=== PATIENT | female | born 1965 | race Caucasian/White ===

== ENCOUNTER → 2022-07-03 13:45 | Outpatient (BNVA) | payer BC, SELFPAY | PROVIDERS: PCP Nurse Practitioner Family; Visit Provider Nurse Practitioner Women's Health | DX: Z01.411 Encounter for gynecological examination (general) (routine) with abnormal findings (principal); Z12.4 Encounter for screening for malignant neoplasm of cervix; N92.0 Excessive and frequent menstruation with regular cycle | CPT/HCPCS: 80053; 82652; 83036; 84443; 85025; 87624 ==

== ENCOUNTER → 2022-07-22 10:38 | Outpatient (BNVA) | payer BC, SELFPAY | PROVIDERS: PCP Nurse Practitioner Family; Visit Provider Nurse Practitioner Women's Health | DX: N92.0 Excessive and frequent menstruation with regular cycle (principal); D25.9 Leiomyoma of uterus, unspecified | CPT/HCPCS: 76830 ==

== ENCOUNTER 2022-10-16 10:34 | Outpatient (CLI) | payer BC, SELFPAY ==
--- NOTE | 2022-10-16 10:49 | MM_ITS ---
WS: [id number] SCREENING DIGITAL BREAST TOMOSYNTHESIS MAMMOGRAM WITH CAD HISTORY: Screening. COMPARISON: None available. Bilateral CC and MLO with tomosynthesis and synthetic mammography submitted. Computer aided detection analyzed. Breast composition: The breasts are heterogeneously dense, which may obscure small masses. Well-circu mscribed nodule in the anterior LEFT breast measures 8 mm. Benign 5 mm lymph node in the RIGHT axilla ry tail. MM/[place] [id number] IMPRESSION: BI-RADS: 0-Incomplete: Need additional imaging evaluation FOLLOW UP: Need Additional Imaging Recommendation: Ultrasound LEFT breast, subareolar.
== END 2022-10-16 10:35 | disposition home or self-care (01) ==
LOC: RAD 10:35
PROVIDERS: PCP Nurse Practitioner Family; Visit Provider Nurse Practitioner Family
DX: Z12.31 Encounter for screening mammogram for malignant neoplasm of breast (principal); N85.2 Hypertrophy of uterus; N85.8 Other specified noninflammatory disorders of uterus
CPT/HCPCS: 76830; 77063; 77067

== ENCOUNTER 2022-11-23 14:47 | Outpatient (CLI) | payer BC, SELFPAY ==
--- NOTE | 2022-11-23 14:53 | US_ITS ---
WS: [id number] ULTRASOUND BREAST LEFT TECHNIQUE: Ultrasound left breast focused area of concern. CLINICAL INFORMATION: ADDITIONAL VIEWS, SUBAREOLAR COMPARISON: October 16, 2022 FINDINGS: Ultrasound LEFT breast in the area of mammographic abnormality LEFT areola. A few simple and complex cysts are visualized. Mild ductal ectasia. No solid or suspicious lesions. No lesions to target for b iopsy. Recommend 6 month follow-up ultrasound to confirm stability. US/US breast LT limited* [id number] IMPRESSION: BI-RADS 3 probably benign FOLLOW UP: Recommend 6 month follow-up LEFT breast ultrasound areola to confirm stability
== END 2022-11-23 14:48 | disposition home or self-care (01) ==
LOC: RAD 14:49
PROVIDERS: PCP Nurse Practitioner Family; Visit Provider Nurse Practitioner Family
DX: R92.8 Other abnormal and inconclusive findings on diagnostic imaging of breast (principal)
CPT/HCPCS: 76642

== ENCOUNTER 2023-02-17 09:40 | Observation (INO) | payer BC, SELFPAY ==
--- NOTE | 2023-02-15 15:05 | P.ANESASSM_ITS ---
Pre-Anesthetic Assessment Height/Weight: Height 1.63 m Weight 90.265 kg Operation Date: 02/17/23 07:00 Proposed Procedures p Total vaginal hysterectomy, bilateral salpingo-oophorectomy 75129,D25.9,N95.0(Not Applicable) - Cash Ojeda MD s Salpingo-Oophorectomy (Vaginal)(Not Applicable) - Cash Ojeda MD Familial anesthetic complications: none Was Beta Stephanie taken within 24 hours: N/A Was Clonidine taken within 24 hours: N/A Social No alcohol and No tobacco Exam alert, oriented x 3, clear to auscultation bilaterally and regular rate & rhythm Airway Submandibular: within normal limits Cervical ROM: within normal limits Mallampati: Class II Dentition: full Pulmonary Asthma CV/HEM Hypertension Anesthetic Plan ASA status: 2 Anesthesia: General Medications/Allergies Home Medications Medication Instructions Recorded Confirmed Last Taken Type levalbuterol tartrate 45 2 inh inhalation Q6H #15 grams 06/26/22 02/15/23 Unknown Rx mcg/actuation aerosol inhaler (Xopenex HFA) fluticasone propionate 110 2 inh inhalation BID PRN Allergic 07/30/22 02/15/23 Unknown History mcg/actuation HFA aerosol inhaler Reaction (Flovent HFA) lisinopril 20 mg tablet 20 mg PO DAILY 90 days #90 tabs 01/26/23 02/15/23 02/15/23 Rx Allergies Allergy/AdvReac Type Severity Reaction Status Date / Time Sulfa (Sulfonamide Allergy Intermediate Hives Verified 02/15/23 13:03 Antibiotics) [facility] Anesthesia Medical History Asthma Hypertension No pertinent past medical history neghx: dm,thyroid,dvt/pe PCP: Nancy Price Surgical History No pertinent past surgical history Family History Mother Cancer, Onset Age: 51 lung-- due to smoking Father Hypertension Parkinson disease Sister Cervical cancer dx at 18 years old-- has not had treatment; most likely pre-cancerous Denies family history of Colon cancer Ovarian cancer Diabetes Heart disease Hypercholesteremia Hyperlipidemia Breast cancer Uterine cancer Thyroid disease Stroke Social History Smoking and tobacco status: never smoked Female Reproductive History Para: 3 Data Anesthesia Cardiac Studies: No Data to Display
[2023-02-17] VITALS (16 sets, daily range): BP systolic 103–150; BP diastolic 66–81; PULSE 52–93; RESP 16–18; TEMP 36.1–36.9; O2SAT 93–100
[2023-02-17 06:22] LABS: OR HCG Qualitative Urine Negative (Negative)
--- NOTE | 2023-02-17 06:44 | W.PM.OPSUD ---
Surgery/Procedure H&P Update DATE OF PROCEDURE: February 17, 2023 DATE H&P PERFORMED: 02/15/23 H&P UPDATE INFORMATION: I have reviewed H&P completed within last 30 days, I have examined patient prior to procedure and No changes to prior documentation PREOP DIAGNOSIS: Abnormal uterine bleeding, uterine fibroid PLANNED PROCEDURE: Operation Date: 02/17/23 07:00 Proposed Procedures p Total vaginal hysterectomy, bilateral salpingo-oophorectomy 14528,D25.9,N95.0(Not Applicable) - Cash Ojeda MD s Salpingo-Oophorectomy (Vaginal)(Not Applicable) - Cash Ojeda MD
[2023-02-17 06:54] LABS: Basophils # 0.1 10^3/uL (0.0-0.1); Basophils % 0.6 %; Eosinophils # 0.4 10^3/uL (0.0-0.8); Eosinophils % 4.7 %; Hematocrit 46.9 % (37.0-47.0); Hemoglobin 14.4 g/dL (11.5-15.3); Lymphocytes # 1.5 10^3/uL (0.8-4.8); Lymphocytes % 17.9 %; Mean Corpuscular HGB Conc 30.7 g/dL (30.0-36.0); Mean Corpuscular Hemoglobin 24.5 pg (28.0-34.0); Mean Corpuscular Volume 79.8 fl (81-99); Monocytes # 0.6 10^3/uL (0.2-0.9); Neutrophils # 5.76 10^3/uL (1.8-7.7); Neutrophils % 69.6 %; Nucleated Red Blood Cells % 0 %; Platelet Count 253 10^3/cmm (130-400); Red Blood Count 5.88 10^6/uL (4.1-5.3); Red Cell Distribution Width 15.2 % (12.1-15.1); White Blood Count 8.3 10^3/uL (4.0-10.0)
[2023-02-17] MEDS: sodium chloride 0.9% 1,000 ML 30 ML IV (07:02)
[2023-02-17] MEDS: sodium chloride 0.9% 500 ML IV (07:02)
[2023-02-17] MEDS: scopolamine 1.5 Patch 1 PATCH TRANSDERMA (07:02)
[2023-02-17] MEDS: ceFOXitin 2,000 MG in sodium chloride 0.9% (plus) 50 ML 100 MG IV (07:04)
[2023-02-17 07:16] LABS: Alanine Aminotransferase 11 U/L (0-33); Albumin Level 3.8 g/dL (3.5-5.2); Alkaline Phosphatase 79 U/L (35-105); Aspartate Amino Transferase 13 U/L (0-32); Blood Urea Nitrogen 18 mg/dL (6-20); Calcium 8.9 mg/dL (8.5-10.5); Carbon Dioxide 23 mmol/L (22-29); Chloride 105 mmol/L (98-107); Globulin 3.1 g/dL (1.3-4.6); Glomerular Filtration Rate 46.5 mL/min (90-130); Glucose 88 mg/dL (65-115); Osmolality Calculated 287 mOsm/kg (285-295); Sodium 138 mmol/L (136-145); Total Bilirubin 0.6 mg/dL (0.15-1.2); Total Protein 6.9 g/dL (6.6-8.7)
[2023-02-17 07:20] LABS: Add Urine Microscopic? YES; Bilirubin Urine Neg (Negative); Blood Urine 2+ (Negative); Glucose Urine UA Norm (Normal); Ketones Urine Negative (Negative); Leukocyte Esterase Urine 2+ (Negative); Nitrate Urine Negative (Negative); Protein Urine Neg (Negative); Specific Gravity, Urine 1.015 (1.005-1.030); Urine Appearance Hazy (CLEAR); Urine Color Yellow (Yellow); Urobilinogen Urine Norm (Negative); pH Urine 6 (5-7)
[2023-02-17 07:21] LABS: Add Urine Culture? Yes; Bacteria Urine TRACE /hpf; WBC Urine 25-40 /hpf (0-5)
[2023-02-17] MEDS: lidocaine-epi 2% 20 mL INJ 10 ML INJECTION (07:27)
[2023-02-17] MEDS: sodium chloride 0.9% 1,000 ML 100 ML IV (07:36)
--- NOTE | 2023-02-17 09:33 | PM.OP ---
Operative Report Date of procedure: February 17, 2023 Pre-op diagnosis: Preop Diagnosis Abnormal uterine bleeding, uterine fibroid Post-op diagnosis: Same as above Post-op findings: Enlarged irregular shaped uterus Procedure done: Total vaginal hysterectomy. Bilateral salpingo-oophorectomy Implants: None Specimens removed/disposition: Uterus Left and right fallopian tube and ovaries Surgeon: Cash Ojeda MD Estimated blood loss (mL): 500 IV fluids (mL): 1,200 Urine output (mL): 200 Complications: Bleeding, enlarged uterus had to be morcellated in the vagina Procedure: After informed consent and risks, benefits, indications and alternatives reviewed with the patient was taken to the operating room. The patient was placed in dorsal lithotomy position prepped, and draped in the usual sterile fashion. The pre-procedure timeout verifying the correct patient, procedure, site and side, could not requirements was performed and acknowledge by the OR team. A Vazquez catheter was placed. A Bookwalter vaginal retractor was placed into the vagina in usual manner visualize the cervix. Cervix was grasped with a single tooth tenaculum and circumferentially infiltrated with 2% lidocaine with epinephrine. Then cervix was circumferentially incised with bovie and the bladder was dissected off the pubovesical cervical fascia anteriorly with a sponge stick and Metzenbaum scissors. The anterior peritoneal reflection was identified and the anterior cul-de-sac was entered sharply with Metzenbaum scissors. The same procedure was performed posteriorly and a posterior colpotomy was made through the posterior cul-de-sac space without difficulty and the posterior blade of the Bookwalter vaginal retractor was advanced posteriorly into the cul-de-sac. At this time, the left and right uterosacral ligaments were isolated and ligated with 0 Vicryl. The Enseal device was placed over the uterosacral ligaments on either side and was then used in a serial fashion up through the cardinal ligaments bilaterally cross-clamped, cut, and sealed with the Enseal device. Finally, the uterine arteries were cross-clamped, cut, sealed and ligated with the Enseal device. Hemostasis was assured. The broad ligaments were then serially clamped, sealed and cut with the Enseal device on both sides. At this time due to the uterus large sized and iregular shape the uterus was morcelated to be able to reach the cornua. Significant bleeding occured due to morcelation. Both cornua were clamped, sealed and cut with the Enseal device. Then the pedicles were then suture ligated with excellent hemostasis. The uterus was excised complete and submitted for pathologic evaluation. No other abnormalities were noted in the pelvic cavity. Then the right side Infundibular ligament was identified. The ureter was confirmed along the pelvic side wall and peristalsis was noted. The Enseal device was then used to clamp, sealed and transcepted at middistance, again being sure to be clear of the ureter and the fallopian tube and ovary were removed. The same process was then repeated on the left side. Good hemostasis was assure on both sides but surgiflow was placed. The peritoneum was then closed in a pursestring fashion with 0 Vicryl suture. The vaginal cuff angles were closed with [id number] #0 Vicryl suture on both sides and transfixed with the ipsilateral cardinal and uterosacral ligaments. The remainder of the vaginal cuff was closed with #0 Vicryl in a running locked fashion. At this time, instruments were removed from the vagina at hemostasis assured. Vazquez catheter was noted yielding clear green/liliana urine. The patient was taken out of dorsal lithotomy position and awakened from the general anesthesia. The patient tolerated the procedure well and was taken to the PACU recovery room in a stable condition. Sponge, lap, needle and instruments counts were correct x3.
--- NOTE | 2023-02-17 09:41 | P.ANESUD_ITS ---
Pre-Anesthetic Update Pre-Anesthetic Assessment: Date of Surgery/Procedure: 02/17/23 Preop Leanne gnosis: Abnormal uterine bleeding, uterine fibroid Proposed Procedure: Operation Date: 02/17/23 07:00 Proposed Procedures p Total vaginal hysterectomy, bilateral salpingo-oophorectomy 55690,D25.9,N95.0(Not Applicable) - Cash Ojeda MD s Salpingo-Oophorectomy (Vaginal)(Not Applicable) - Cash Ojeda MD Any changes to Pre-Anesthetic Assessment?: No Last Intake: Intake Last Liquid Date 02/16/23 Last Liquid Time 21:00 Last Solid Date 02/16/23 Last Solid Time 19:00 Labs Last 48hrs: Short CBC 02/17/23 Range/Units 06:42 WBC 8.3 (4.0-10.0) 10^3/ uL Hgb 14.4 (11.5-15.3) g/dL Hct 46.9 (37.0-47.0) % MCV 79.8 L (81-99) fl Plt Count 253 (130-400) 10^3/c mm Neut % (Auto) 69.6 % Neut # (Auto) 5.76 (1.8-7.7) 10^3/u L BMP 02/17/23 06:42 Sodium 138 Potassium 4.0 Chloride 105 Carbon Dioxide 23 BUN 18 Creatinine 1.2 H Glucose 88 Calcium 8.9 Liver Function 02/17/23 Range/Units 06:42 Total Bilirubin 0.6 (0.15-1.2) mg/dL AST 13 (0-32) U/L ALT 11 (0-33) U/L Alkaline Phosphata se 79 (35-105) U/L Albumin 3.8 (3.5-5.2) g/dL Urine 02/17/23 Range/Units 06:53 Urine Color Yellow (Yellow) Urine Appearance Hazy A (CLEAR) Urine pH 6 (5-7) Ur Specific Gravit y 1.015 (1.005-1.030) Urine Protein Neg (Negative) Urine Glucose (UA) Norm (Normal) Urine Ketones Negative (Negative) Urine Nitrate Negative (Negative) Urine Bilirubin Neg (Negative) Ur Leukocyte Annabelle ase 2+ H (Negative) Urine RBC 10-15 H (0-2) /hpf Urine WBC 25-40 H (0-5) /hpf Blood Bank 02/17/23 06:42 Blood Type O Positive Rho(D) Type Positive Antibody Screen Negative Vitals: Temperature 97 F L 02/17/23 09:32 Temperature Source Temporal Artery S can 02/17/23 06:30 Pulse Rate 54 L 02/17/23 09:37 Respiratory Rate 16 02/17/23 09:37 Blood Pressure 143/71 02/17/23 09:37 Blood Pressure Elissa n 95 02/17/23 09:37 Pulse Oximetry 100 02/17/23 09:37 Oxygen Delivery Me thod Room Air 02/17/23 09:37 Exam: Pre-Anes Outpt Exam: alert, oriented x 3, clear to auscultation bilaterally and regular rate & rhythm Cardiac Studies: No Data to Display
[2023-02-17] MEDS: ketorolac 30 mg/mL INJ IVP ×3 (10:38→22:56)
--- NOTE | 2023-02-17 14:11 | ANE.PACU2 ---
Inpatient post-anesthesia follow up: Airway intact: Yes Vital signs: Temperature 98.0 F Pulse Rate 59 Respiratory Rate 17 Blood Pressure 112/74 Pulse Oximetry 97 Oxygen Delivery Me thod Room Air Oxygen Flow Rate Fraction of Inspir ed Oxygen Hydration adequate: Yes Nausea and vomiting: No Pain level: 3 Mental status: Baseline
[2023-02-17] MEDS: docusate sodium 100 mg Capsule PO (18:25)
[2023-02-17] MEDS: simethicone 80 mg Chew PO (22:56)
[2023-02-17] MEDS: dextrose 5%-lactated ringers 1,000 ML 125 ML IV (23:00)
[2023-02-18 04:00] VITALS: BP 102/64; PULSE 77; RESP 18; TEMP 37.3; O2SAT 97
[2023-02-18] MEDS: ketorolac 30 mg/mL INJ IVP (05:19)
[2023-02-18] MEDS: simethicone 80 mg Chew PO (05:20)
[2023-02-18 05:33] LABS: Hematocrit 32.7 % (37.0-47.0); Hemoglobin 9.9 g/dL (11.5-15.3); Mean Corpuscular HGB Conc 30.3 g/dL (30.0-36.0); Mean Corpuscular Hemoglobin 24.4 pg (28.0-34.0); Mean Corpuscular Volume 80.7 fl (81-99); Mean Platelet Volume 9.1 fL (7.4-10.4); Platelet Count 186 10^3/cmm (130-400); Red Blood Count 4.05 10^6/uL (4.1-5.3); Red Cell Distribution Width 15.2 % (12.1-15.1); White Blood Count 10.8 10^3/uL (4.0-10.0)
--- NOTE | 2023-02-18 06:48 | PC.NURSE ---
This nurse handed off pt to Anahy Harrison on 02-17-23 @ [id number].
--- NOTE | 2023-02-18 09:10 | P.DS_ITS ---
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 Lopez is a 56 year old with a history of abnormal uterine bleeding due to enlarged uterus with fibroids. Hospital Course Hospital Course Ms. Lopez is a 56 year old with a large fibroid uterus admitted for planned total vaginal hysterectomy. Total vaginal hysterectomy with bilateral salpingectomy was performed complicated by significant bleeding due to in vagina morcellation of the uterus due to size. Postop overnight observation uneventful. Patient is afebrile and hemodynamically stable postoperative day 1. Tolerating diet well. Ambulating without difficulty. She was counseled r egarding pelvic rest for 6 weeks (no sex, no tampons, no vaginal douches). Return to the emergency room if any fever, increased bleeding or pain. Physical Exam Narrative: GA: Alert and oriented ?3. HEENT: WNL. Heart: Regular rate and rhythm. Lungs: Clear to auscultation bilaterally. Abdomen: Bowel sounds present, nontender. [employer] ARCHITECT: Spotting bleeding. Extremities: No edema, no cyanosis, no calves pain. Urinary Catheter Management: Vazquez: Cath Placed During This Visit: yes, but has since been removed by the nurse Reason for Continuing Indwelling Catheter: Decision to DC Catheter Urinary Catheter Date of Insertion: 02/17/23 Urinary Catheter Time of Insertion: 07:27 Date Urinary Catheter Removed: 02/18/23 Time Urinary Catheter Discontinued: 05:31 History History History 2 3 Term 3 0 Miscarriages/Ectopic 0 Living Children 3 Discharge Data Studies Completed and Pending Pending at discharge Category Date Time Status Urine Culture Stat Lab 02/17/23 06:53 Received Pathology: Surgical [PTH] Routine Pth 02/17/23 09:21 Received Laboratory Results WBC 10.8 10^3/uL (4.0-10.0) H 02/18/23 05:25 RBC 4.05 10^6/uL (4.1-5.3) L 02/18/23 05:25 Hgb 9.9 g/dL (11.5-15.3) L D 02/18/23 05:25 Hct 32.7 % (37.0-47.0) L D 02/18/23 05:25 MCV 80.7 fl (81-99) L 02/18/23 05:25 MCH 24.4 pg (28.0-34.0) L 02/18/23 05:25 MCHC 30.3 g/dL (30.0-36.0) 02/18/23 05:25 RDW 15.2 % (12.1-15.1) H 02/18/23 05:25 Plt Count 186 10^3/cmm (130-400) 02/18/23 05:25 MPV 9.1 fL (7.4-10.4) 02/18/23 05:25 Neut % (Auto) 69.6 % 02/17/23 06:42 Lymph % (Auto) 17.9 % 02/17/23 06:42 Crane % (Auto) 7.0 % 02/17/23 06:42 Eos % (Auto) 4.7 % 02/17/23 06:42 Baso % (Auto) 0.6 % 02/17/23 06:42 Neut # (Auto) 5.76 10^3/uL (1.8-7.7) 02/17/23 06:42 Lymph # (Auto) 1.5 10^3/uL (0.8-4.8) 02/17/23 06:42 Crane # (Auto) 0.6 10^3/uL (0.2-0.9) 02/17/23 06:42 Eos # (Auto) 0.4 10^3/uL (0.0-0.8) 02/17/23 06:42 Baso # (Auto) 0.1 10^3/uL (0.0-0.1) 02/17/23 06:42 Nucleated RBC % (auto) 0 % 02/17/23 06:42 Nucleated RBCs # 0.0 /100WBC 02/17/23 06:42 Sodium 138 mmol/L (136-145) 02/17/23 06:42 Potassium 4.0 mmol/L (3.5-5.1) 02/17/23 06:42 Chloride 105 mmol/L (98-107) 02/17/23 06:42 Carbon Dioxide 23 mmol/L (22-29) 02/17/23 06:42 Anion Gap 14.0 (5-19) 02/17/23 06:42 BUN 18 mg/dL (6-20) 02/17/23 06:42 Creatinine 1.2 mg/dL (0.5-0.9) H 02/17/23 06:42 GFR Calculation 46.5 mL/min (90-130) L 02/17/23 06:42 Glucose 88 mg/dL (65-115) 02/17/23 06:42 Calculated Osmolality 287 mOsm/kg (285-295) 02/17/23 06:42 Calcium 8.9 mg/dL (8.5-10.5) 02/17/23 06:42 Total Bilirubin 0.6 mg/dL (0.15-1.2) 02/17/23 06:42 AST 13 U/L (0-32) 02/17/23 06:42 ALT 11 U/L (0-33) 02/17/23 06:42 Alkaline Phosphatase 79 U/L (35-105) 02/17/23 06:42 Total Protein 6.9 g/dL (6.6-8.7) 02/17/23 06:42 Albumin 3.8 g/dL (3.5-5.2) 02/17/23 06:42 Globulin 3.1 g/dL (1.3-4.6) 02/17/23 06:42 Urine Color Yellow (Yellow) 02/17/23 06:53 Urine Appearance Hazy (CLEAR) A 02/17/23 06:53 Urine pH 6 (5-7) 02/17/23 06:53 Ur Specific Shiro 1.015 (1.005-1.030) 02/17/23 06:53 Urine Protein Neg (Negative) 02/17/23 06:53 Urine Glucose (UA) Norm (Normal) 02/17/23 06:53 Urine Ketones Negative (Negative) 02/17/23 06:53 Urine Blood 2+ (Negative) H 02/17/23 06:53 Urine Nitrate Negative (Negative) 02/17/23 06:53 Urine Bilirubin Neg (Negative) 02/17/23 06:53 Urine Urobilinogen Norm mg/dL (Negative) 02/17/23 06:53 Ur Leukocyte Esterase 2+ (Negative) H 02/17/23 06:53 Urine RBC 10-15 /hpf (0-2) H 02/17/23 06:53 Urine WBC 25-40 /hpf (0-5) H 02/17/23 06:53 Ur Squamous Epith Cells 5-10 /hpf (0-5) H 02/17/23 06:53 Amorphous Sediment Not Reportable 02/17/23 06:53 Urine Bacteria Trace /hpf (NONE) 02/17/23 06:53 Urine HCG, Qual Negative (Negative) 02/17/23 06:21 Blood Type O Positive 02/17/23 06:42 Rho(D) Type Positive 02/17/23 06:42 Antibody Screen Negative 02/17/23 06:42 Vitals Last Vital Signs Temp 99.1 F 02/18/23 04:00 Pulse 77 02/18/23 04:00 Resp 18 02/18/23 04:00 BP 102/64 02/18/23 04:00 Pulse Ox 97 02/18/23 04:00 O2 Del Method Room Air 02/18/23 04:00 Discharge Plan Discharge Patient Disposition: Home Condition: Stable Prescriptions: New hydrocodone-acetaminophen 5-325 mg tablet 1 tab PO Q4H PRN (Reason: pain) Qty: 15 0RF docusate sodium [Colace] 100 mg capsule 100 mg PO BID Qty: 60 0RF acetaminophen 325 mg capsule 325 mg PO Q4H PRN (Reason: fever or pain) Qty: 60 0RF ferrous sulfate [Iron (ferrous sulfate)] 325 mg (65 mg iron) tablet 325 mg PO BID Qty: 60 0RF ibuprofen 800 mg tablet 800 mg PO TID PRN (Reason: pain) Qty: 60 0RF Continued levalbuterol tartrate [Xopenex HFA] 45 mcg/actuation HFA aerosol inhaler 2 inh inhalation Q6H Qty: 15 3RF lisinopril 20 mg tablet 20 mg PO DAILY 90 Days Qty: 90 2RF fluticasone propionate [Flovent HFA] 110 mcg/actuation HFA aerosol inhaler 2 inh inhalation BID PRN (Reason: Allergic Reaction) Discharge Orders: Discharge Order (Routine); Ordered 02/18/23 Ordered By: Cash Ojeda Referrals: Cash Ojeda MD [Physician] - 03/04/23 9:45 am ( Your [address] follow up with Dr Ojeda is on March 04 at 9:45am Your 6 week follow up with Dr Ojeda is on April 02 at 9:15am ) Discharge Diet: Usual diet Discharge Activity: Limit activity as instructed Patient Instructions: Salpingo-Oophorectomy (GEN), Vaginal Hysterectomy (GEN), OB Discharge Report, OB Anesthesia Instructions, Opioid Safety Activity Restrictions/Additional Instructions: 1. Please call [facility] on next working day to make your post-operative appointment in 2 weeks. 2. Please stay home until you come back to the clinic on first post- hospatilization check up. 3. Please follow instructions on your medications CAREFULLY. 4. If you have abdominal incision, do not cover it unless dressing is necessary because of drainage. OK to shower, but avoid bath. Leave steri-strips until they fall off. If they are still on one week after surgery, you may remove them . 5. If you had vaginal surgery or vaginal repair, Dr. Ojeda may instruct you to take SITZ bath. 6. Yellow, blood tinged odorous vaginal discharge is usually normal after hysterectomy or vaginal surgeries. 7. No SEXUAL INTERCOURSE, tampons, or douches until you are completely released from the post-operative care. 8. Avoid constipation by eating right and maybe using some Metamucil or Milk of Magnesia. 9. All prescription refills are given during the working hours. Please do no wait till it runs out. Call the clinic at [phone] before your medication runs out. The clinic will get in touch with your doctor to prescribe medications if necessary. 10. Please remain within 40 mile radius from our hospital because emergencies do happen now and then during the post-operative period. 11. If you have stairs at home, take one step at a time slowly and minimize the number of trips. It helps to stay in one floor for the next few days. No lifting except what you can lift by one hand until you are released from the post-operative care. 12. Driving is discouraged until you are well healed. It may be 3-4 weeks before you feel strong enough to drive. You should be able to turn and look through the rear window without pain and you should be able to push the brake pedal very hard without pain before you drive. No fast rules, but SAFETY should be your primary concern. DO NOT drive if you are on sedating medications such as narcotics. 13. Call the clinic (during working hours) to make urgent appointment or go to the Emergency room, if any of the following occurs: i. Vaginal bleeding becomes heavy, more than a period. ii. Incision becomes red and sore, or drains pus. iii. Your TEMPERATURE is over 100.4F or you have chill. iv. IV site becomes red and swollen (a little ``knot?? is usually OK) v. Persistent nausea and vomiting vi. Persistent constipation or diarrhea vii. Rash or allergic reaction to medications. 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
[2023-02-18] MEDS: ibuprofen 800 mg tablet PO (09:21)
[2023-02-18] MEDS: docusate sodium 100 mg Capsule PO (09:21)
[2023-02-18 09:25] VITALS: BP 102/65; PULSE 72; RESP 15; TEMP 36.7; O2SAT 98
== END 2023-02-18 09:50 | disposition home or self-care (01) ==
LOC: OBGYN 09:41
PROVIDERS: Admitting Provider Obstetrics & Gynecology; PCP Family Medicine; Visit Provider Obstetrics & Gynecology
PROC: (CPT 58291; principal; 2023-02-17 07:00)
PROC: (CPT 58720; 2023-02-17 07:00)
DX: D25.9 Leiomyoma of uterus, unspecified (principal); I10 Essential (primary) hypertension; J45.909 Unspecified asthma, uncomplicated; N99.61 Intraoperative hemorrhage and hematoma of a genitourinary system organ or structure complicating a genitourinary system procedure; N85.2 Hypertrophy of uterus
CPT/HCPCS: 58291; 36415; 80053; 81001; 81025; 84703; 85025; 85027; 86850; 86900; 87077; 87086; 87186; 88307; 96374; 96376; G0378; J0694; J1100; J1170; J1200; J1885; J2250; J2405; J2704; J2710; J3010; J3490; J7030; J7040; J7121; Q9968

== ENCOUNTER → 2023-07-21 08:41 | Outpatient (BNVA) | payer BC, SELFPAY | PROVIDERS: PCP Family Medicine; Visit Provider Family Medicine | DX: I10 Essential (primary) hypertension (principal); D64.9 Anemia, unspecified; N60.02 Solitary cyst of left breast; Z12.31 Encounter for screening mammogram for malignant neoplasm of breast; Z12.11 Encounter for screening for malignant neoplasm of colon | CPT/HCPCS: 80048; 85025 ==

== ENCOUNTER 2023-08-19 09:26 | Outpatient (CLI) | payer BC, SELFPAY ==
--- NOTE | 2023-08-19 09:45 | US_ITS ---
WS: [id number] ULTRASOUND BREAST LEFT TECHNIQUE: Ultrasound left breast focused area of concern. CLINICAL INFORMATION: N60.02 - Solitary cyst of left breast COMPARISON: 11/23/2022 FINDINGS: Ultrasound LEFT breast at the areola. Again seen are a few simple and slightly complex cysts. Mild du ctal ectasia. No intraductal lesions. No suspicious lesions to target for biopsy. Findings are benign . Recommend return to annual screen mammography. IMPRESSION: BI-RADS 2 benign Recommend return to annual screen mammography
== END 2023-08-19 09:27 | disposition home or self-care (01) ==
LOC: RAD 09:26
PROVIDERS: PCP Family Medicine; Visit Provider Family Medicine
DX: N60.02 Solitary cyst of left breast (principal)
CPT/HCPCS: 76642

== ENCOUNTER 2023-10-18 08:13 | Outpatient (CLI) | payer BC, SELFPAY ==
--- NOTE | 2023-10-18 08:17 | MM_ITS ---
WS: [id number] BILATERAL SCREENING DIGITAL TOMOSYNTHESIS MAMMOGRAM WITH CAD HISTORY: Z12.39 - Encounter for other screening for malignant neop... COMPARISON: 10/16/2022 Bilateral CC and MLO views with tomosynthesis and synthetic mammography submitted. Computer aided det ection analyzed. Breast composition: There are scattered areas of fibroglandular density. No suspicious masses, microc alcifications or architectural distortion. Small group of nodules posterior to the LEFT nipple and a few calcifications. No grouping of calcifications. IMPRESSION: MM/[place] [id number] BI-RADS: 2-Benign FOLLOW UP: 1 Year Follow-up
== END 2023-10-18 08:14 | disposition home or self-care (01) ==
LOC: RAD 08:13
PROVIDERS: PCP Family Medicine; Visit Provider Family Medicine
DX: Z12.31 Encounter for screening mammogram for malignant neoplasm of breast (principal)
CPT/HCPCS: 77063; 77067

== ENCOUNTER → 2024-01-20 08:37 | Outpatient (BNVA) | payer BC, SELFPAY | PROVIDERS: PCP Family Medicine; Visit Provider Family Medicine | DX: I10 Essential (primary) hypertension (principal); Z13.220 Encounter for screening for lipoid disorders; Z13.6 Encounter for screening for cardiovascular disorders; K64.9 Unspecified hemorrhoids; J45.20 Mild intermittent asthma, uncomplicated; Z13.1 Encounter for screening for diabetes mellitus | CPT/HCPCS: 80053; 80061 ==

== ENCOUNTER → 2024-05-05 16:30 | Outpatient (BNVA) | payer BC, SELFPAY | PROVIDERS: PCP Family Medicine; Visit Provider Obstetrics & Gynecology | DX: Z78.0 Asymptomatic menopausal state (principal); R63.5 Abnormal weight gain; R53.83 Other fatigue | CPT/HCPCS: 83001; 84443 ==

== ENCOUNTER 2024-11-20 09:31 | Outpatient (CLI) | payer BC, SELFPAY ==
--- NOTE | 2024-11-20 09:32 | MM_ITS ---
WS: [id number] BILATERAL SCREENING DIGITAL TOMOSYNTHESIS MAMMOGRAM WITH CAD HISTORY: SCREENING COMPARISON: 10/16/2022, 10/18/2023 Bilateral CC and MLO views with tomosynthesis and synthetic mammography submitted. Computer aided detection analyzed. Breast composition: There are scattered areas of fibroglandular density. No suspicious masses, microcalcifications or architectural distortion. Benign scattered calcifications. Reidentified is a LEFT retroareolar mass measuring 6 x 6 x 7 mm. This has been present and stable since 10/16/2022. Noted to be a cluster of cysts on prior ultrasound. MM/MM scr BI tomosynthesis [id number] IMPRESSION: BI-RADS: 2 - Benign. FOLLOW UP: 1 Year Follow-up
== END 2024-11-20 09:32 | disposition home or self-care (01) ==
PROVIDERS: PCP Family Medicine; Visit Provider Obstetrics & Gynecology
DX: Z12.31 Encounter for screening mammogram for malignant neoplasm of breast (principal); R92.323 Mammographic fibroglandular density, bilateral breasts; R92.1 Mammographic calcification found on diagnostic imaging of breast; N60.12 Diffuse cystic mastopathy of left breast
CPT/HCPCS: 77063; 77067

== ENCOUNTER → 2025-02-09 09:31 | Outpatient (BNVA) | payer BC, SELFPAY | PROVIDERS: PCP Family Medicine; Visit Provider Family Medicine | DX: I10 Essential (primary) hypertension (principal); Z13.220 Encounter for screening for lipoid disorders; Z13.6 Encounter for screening for cardiovascular disorders | CPT/HCPCS: 80048; 80061 ==

== ENCOUNTER 2025-06-05 07:47 | Outpatient (CLI) | payer BC, SELFPAY ==
--- NOTE | 2025-06-05 08:00 | MM_ITS ---
WS: [id number] DIAGNOSTIC RIGHT DIGITAL BREAST TOMOSYNTHESIS MAMMOGRAPHY WITH CAD RIGHT breast ultrasound, limited HISTORY: N63.10 - Unspecified lump in the right breast, unspecifie... COMPARISON: 11/20/2024, 10/18/2023, 10/16/2022 Breast composition: There are scattered areas of fibroglandular density. Marker is placed in the area of the palpable nodule which is along the medial inferior breast. There is no underlying mass identified. The fibroglandular pattern is similar to prior exams. Arterial calcifications. RIGHT breast ultrasound, limited. Ultrasound directed by the patient in the area of palpable abnormality which is at 4:00, 3 cm from the nipple. There is no mass identified. No skin thickening or distortion. MM/MM diag RT tomosynthesis [id number] IMPRESSION: BI-RADS: 2 - Benign. FOLLOW UP: See Report No ultrasound or mammographic abnormality noted in the RIGHT breast in the area of concern. Recommend return to annual screening mammography.
--- NOTE | 2025-06-05 08:30 | US_ITS ---
NOTE: Report was unsigned for reason: Order was edited. Original Signature date and time was: 06/05/25 @ 834 WS: [id number] DIAGNOSTIC RIGHT DIGITAL BREAST TOMOSYNTHESIS MAMMOGRAPHY WITH CAD RIGHT breast ultrasound, limited HISTORY: N63.10 - Unspecified lump in the right breast, unspecifie... COMPARISON: 11/20/2024, 10/18/2023, 10/16/2022 Breast composition: There are scattered areas of fibroglandular density. Marker is placed in the area of the palpable nodule which is along the medial inferior breast. There is no underlying mass identified. The fibroglandular pattern is similar to prior exams. Arterial calcifications. RIGHT breast ultrasound, limited. Ultrasound directed by the patient in the area of palpable abnormality which is at 4:00, 3 cm from the nipple. There is no mass identified. No skin thickening or distortion. [facility] US/US breast RT limited* [id number] IMPRESSION: BI-RADS: 2 - Benign. FOLLOW UP: See Report No ultrasound or mammographic abnormality noted in the RIGHT breast in the area of concern. Recommend return to annual screening mammography.
== END 2025-06-05 07:48 | disposition home or self-care (01) ==
LOC: RAD 07:54
PROVIDERS: PCP Family Medicine; Visit Provider Nurse Practitioner Women's Health
DX: N63.14 Unspecified lump in the right breast, lower inner quadrant (principal); R92.1 Mammographic calcification found on diagnostic imaging of breast; R92.323 Mammographic fibroglandular density, bilateral breasts
CPT/HCPCS: 76641; 76642; 77061; G0279